=== PATIENT | female | born 1975 | race African-American/Black ===

== ENCOUNTER 2017-01-12 22:49 | Emergency (ER) | payer MEDICAID ==
[2017-01-12] MEDS ORDERED: METOCLOPRAMIDE HCL INJ/PF 10 MG/2 ML SDV IV ONE (23:05)
[2017-01-12] MEDS ORDERED: DIPHENHYDRAMINE HCL 50 MG/ML VIAL IV ONE (23:05)
--- NOTE | 2017-01-12 23:07 | ER Document Report ---
ED Medical Screen (RME) - General Chief Complaint: Headache Stated Complaint: HEADACHE WITH NUMBNESS ON LEFT SIDE Time Seen by Provider: 01/12/17 23:05 Mode of Arrival: Ambulatory Information source: Patient Notes: Patient presents complaining of right-sided migraine headache that started around 6 PM today. Patient states she is light sensitive and has some blurred vision. Patient states that she feels like her left side of her face is numb. Patient reports that with her migraines she has had visual problems and facial numbness in the past although she thought her speech was slurred earlier today which is not typical of her migraines. Patient does state she has a previous history of stroke in the past. Patient does have a history of hypertension and reports taking her blood pressure medication late today at 6 PM. hx: Hypertension, migraine, stroke TRAVEL OUTSIDE OF THE [place] IN LAST 30 DAYS: No Past Medical History Renal/ Medical History: Denies: Hx Peritoneal Dialysis Physical Exam - Vital signs Vitals: Temp Pulse Resp BP Pulse Ox 98.3 F 54 L 20 175/109 H 97 01/12/17 22:55 01/12/17 22:55 01/12/17 22:55 01/12/17 22:55 01/12/17 22:55 - Neurological Neuro grossly intact: Yes Cognition: Normal Rayshawn Coma Scale Eye Opening: Spontaneous Rayshawn Coma Scale Verbal: Oriented Rayshawn Coma Scale Motor: Obeys Commands Braggs Coma Scale Total: 15 Speech: Normal Cranial nerves: Normal Course - Re-evaluation Re-evalutation: 01/12/17 23:[address] Crawford regarding patient presentation and diagnostic evaluation. Does recommend ordering a CT of the head, does not recommend any additional diagnostic tests at this time. - Vital Signs Vital signs: Temp Pulse Resp BP Pulse Ox 98.3 F 54 L 20 175/109 H 97 01/12/17 22:55 01/12/17 22:55 01/12/17 22:55 01/12/17 22:55 01/12/17 22:55
--- NOTE | 2017-01-13 00:07 | RADIOLOGY REPORT (SQ) ---
EXAM DESCRIPTION: CT HEAD WITHOUT COMPLETED DATE/TIME: 01/12/2017 11:45 pm REASON FOR STUDY: POWER COMPARISON: None. TECHNIQUE: Axial images acquired through the brain without intravenous contrast. Images reviewed wi th bone, brain and subdural windows. Images stored on PACS. All CT scanners at this facility use dose modulation, iterative reconstruction, and/or weight based d osing when appropriate to reduce radiation dose to as low as reasonably achievable (ALARA). [facility]: Dose Right [facility]: CareDose [facility]: Dose Right [facility]: Teradose 4D [facility]: Smart Bangcle RADIATION DOSE: Up-to-date CT equipment and radiation dose reduction techniques were employed. CTDIv ol: 64.6 mGy. DLP: 1163 mGy-cm. mGy. LIMITATIONS: None. FINDINGS: VENTRICLES: Normal size and contour. CEREBRUM: No masses. No hemorrhage. No midline shift. Normal yates/white matter differentiation. N o evidence for acute infarction. CEREBELLUM: No masses. No hemorrhage. No alteration of density. No evidence for acute infarction. EXTRAAXIAL SPACES: No fluid collections. No masses. ORBITS AND GLOBE: No intra- or extraconal masses. Normal contour of globe without masses. CALVARIUM: No fracture. PARANASAL SINUSES: No fluid or mucosal thickening. SOFT TISSUES: No mass or hematoma. OTHER: No other significant finding. IMPRESSION: No acute intracranial findings. TECHNICAL DOCUMENTATION: JOB ID: [id number] Quality ID # [id number]: Final reports with documentation of one or more dose reduction techniques (e.g., Au tomated exposure control, adjustment of the mA and/or kV according to patient size, use of iterative reconstruction technique) 2010 [employer]- All Rights Reserved
[2017-01-13] MEDS ORDERED: KETOROLAC TROMETHAMINE INJ/PF 30 MG/1 ML SDV IV ONE (02:46)
--- NOTE | 2017-01-13 02:50 | ER Document Report ---
ED General - General Chief Complaint: Headache Stated Complaint: HEADACHE WITH NUMBNESS ON LEFT SIDE Time Seen by Provider: 01/12/17 23:05 Mode of Arrival: Ambulatory Notes: Patient is a 41-year-old female who presents with complaint of migraine. She has a history of migraines. She says she frequently does get numbness associated with her migraines. This time she has numbness that is intermittent on the left side of her face and sometimes into her left hand. She says that they "tingling type sensation". No muscular weakness. She said one time they told her that she may have had a stroke when she had similar symptoms however since then she has had multiple headaches with similar symptoms. It sounds as if she may have complex migraines. No fevers. No vomiting. No diarrhea. Headache is been gradually worsening over last 2 days. TRAVEL OUTSIDE OF THE [place] IN LAST 30 DAYS: No - Related Data Allergies/Adverse Reactions: diphenhydramine [From Benadryl] Adverse Reaction (Mild, Verified 01/13/17 03:01) Hallucinations Past Medical History - General Information source: Patient - Social History Smoking Status: Never Smoker Frequency of alcohol use: None Drug Abuse: None Family History: Reviewed & Not Pertinent Patient has suicidal ideation: No Patient has homicidal ideation: No Renal/ Medical History: Denies: Hx Peritoneal Dialysis Review of Systems - Review of Systems Notes: My Normal Review Basic REVIEW OF SYSTEMS: CONSTITUTIONAL : Denies fever, chills, or sweats. Denies recent illness. EENT: Denies eye, ear, throat, or mouth pain or symptoms. Denies nasal or sinus congestion. RESPIRATORY: Denies cough, cold, or chest congestion. Denies shortness of breath, difficulty breathing, or wheezing. GASTROINTESTINAL: Denies abdominal pain. Denies nausea, vomiting, or diarrhea. Denies constipation. Last BM: MUSCULOSKELETAL: Denies neck or back pain or joint pain or swelling. SKIN: Denies rash or skin lesions. NEUROLOGICAL: Denies altered mental status or loss of consciousness. Has a headache. Denies weakness or paralysis or loss of use of either side. Denies problems with gait or speech. Intermittent "tingling" sensation on left side PSYCHIATRIC: Denies anxiety or stress or depression. ALL OTHER SYSTEMS REVIEWED AND NEGATIVE. Physical Exam - Vital signs Vitals: Temp Pulse Resp BP Pulse Ox 98.3 F 54 L 20 175/109 H 97 01/12/17 22:55 01/12/17 22:55 01/12/17 22:55 01/12/17 22:55 01/12/17 22:55 - Notes Notes: General Appearance: Well nourished, alert, cooperative, no acute distress, moderate obvious discomfort. Vitals: reviewed, See vital signs table. Head: no swelling or tenderness to the head Eyes: PERRL, EOMI, Conjuctiva clear Mouth: No decreasd moisture Throat: No tonsillar inflammation, No airway obstruction, No lymphadenopathy Neck: Supple, no neck tenderness Lungs: No wheezing, No rales, No rhonci, No accessory muscle use, good air exchange bilaterally. Heart: Normal rate, Regular rythm, No murmur, no rub Abdomen: Normal BS, soft, No rigidity, No abdominal tenderness, No guarding, no rebound, no abdominal masses, no organomegaly Extremities: strength 5/5 in all extremities, good pulses in all extremities, no swelling or tenderness in the extremities, no edema. Skin: warm, dry, appropriate color, no rash Neuro: speech clear, oriented x 3, normal affect, responds appropriately to questions. Nerves II through XII are intact. Distal sensation intact. Patient was lower extremities without difficulty. Patient is able stand up on her own. She has good balance. Normal Romberg. Course - Vital Signs Vital signs: Temp Pulse Resp BP Pulse Ox 98.3 F 54 L 20 175/109 H 97 01/12/17 22:55 01/12/17 22:55 01/12/17 22:55 01/12/17 22:55 01/12/17 22:55 - Transfer of Care Notes: 01/13/17 04:08 Headache is gone. She feels much improved. Patient's headache was very similar to her previous headaches in the location and the associated neurologic symptoms. Per her history it sounds that she most likely has complex migraines and that she typically does get the numbness and tingling sensation with her migraines. All symptoms are resolved after the Benadryl, Reglan, and Toradol. Patient will be discharged home with a prescription of Reglan which I encouraged her to take Benadryl if she has recurrent headaches. I encourage her to follow-up closely with her primary care doctor. Patient agrees with plan will be discharged home. Patient encouraged to return to ER if she has intractable headache or feels unwell. Dictation of this chart was performed using voice recognition software; therefore, there may be some unintended grammatical errors. Discharge - Discharge Clinical Impression: Headache Qualifiers: Headache type: unspecified Headache chronicity pattern: acute headache Intractability: not intractable Qualified Code(s): R51 - Headache Condition: Good Disposition: HOME, SELF-CARE Additional Instructions: Please take 50mg of Benadryl with the Reglan when you have a headache. Do not drive for at least 6 hours after taking these medications as they can make you very sleepy and impair your judgement. Please return to the ER immediately if you have worsening headaches, weakness of your arms or legs, difficulty talking , or if you feel unwell. Prescriptions: Metoclopramide HCl [Reglan 10 mg Tablet] 1 tab PO ASDIR PRN #25 tablet PRN Reason: Forms: Return to Work
[2017-01-13] MEDS ORDERED: METOCLOPRAMIDE HCL INJ/PF 10 MG/2 ML SDV ONE (03:05)
[2017-01-13 04:49] VITALS: BP 152/92
== END 2017-01-13 04:27 | disposition home or self-care (01) ==
LOC: EDBD 22:49 → ER 01-13 03:25
DX: G43.909 Migraine, unspecified, not intractable, without status migrainosus (principal); R20.2 Paresthesia of skin
CPT/HCPCS: 99284; 96374; 96375; 70450; J1885; J2765

== ENCOUNTER 2017-01-14 13:37 | Emergency (ER) | payer MEDICAID ==
[2017-01-14] MEDS ORDERED: LISINOPRIL 5 MG TABLET PO ONE (14:06)
--- NOTE | 2017-01-14 14:11 | ER Document Report ---
ED Medical Screen (RME) - General Chief Complaint: High Blood Pressure Stated Complaint: BLOOD PRESSURE PROBLEM Time Seen by Provider: 01/14/17 14:05 Mode of Arrival: Ambulatory Information source: Patient Notes: This is a 41-year-old female referred to the ER from the [facility] because of an elevated blood pressure (173/102). Patient recently moved here from [place]. She does have a history of metoprolol, TIA and migraines. Patient is currently on metoprolol 75 mg once daily. She states that she has been under stress lately with her move. She denies any significant chest pain, focal weakness. She states that she did feel like she had tingling in the arms bilaterally and felt a little lightheaded. That is what precipitated her going to the [facility] to have a blood pressure check. When she was found to have an elevated blood pressure, they referred her to the ER. Currently, patient denies any chest pain, shortness of breath, abdominal pain, focal weakness. TRAVEL OUTSIDE OF THE [place] IN LAST 30 DAYS: No - HPI Onset: Just prior to arrival Onset/Duration: Gradual Quality of pain: No pain Severity: None Pain Level: Denies Associated Symptoms: denies: Chest pain, Shortness of breath Exacerbated by: Denies Relieved by: Denies Similar symptoms previously: Yes Recently seen / treated by doctor: No - Related Data Allergies/Adverse Reactions: diphenhydramine [From Benadryl] Adverse Reaction (Mild, Verified 01/14/17 13:39) Hallucinations Home Medications: Current Home Medications Metoprolol Tartrate 75 mg PO DAILY 01/14/17 [History] Past Medical History - General Information source: Patient - Social History Cigarette use (# per day): No Chew tobacco use (# tins/day): No Frequency of alcohol use: None Drug Abuse: None Lives with: Family Family history: Reviewed & Not Pertinent - Past Medical History Cardiac Medical History: Reports: Hx Hypertension Pulmonary Medical History: Reports: None EENT Medical History: Reports: None Neurological Medical History: Reports: Other - TIA Endocrine Medical History: Reports: None Renal/ Medical History: Reports: None. Denies: Hx Peritoneal Dialysis Malignancy Medical History: Reports: None GI Medical History: Reports: None Musculoskeltal Medical History: Reports None Skin Medical History: Reports None Psychiatric Medical History: Reports: None Infectious Medical History: Reports: None Surgical Hx: Negative - Immunizations Hx Diphtheria, Pertussis, Tetanus Vaccination: No Review of Systems - Review of Systems Constitutional: denies: Chills, Fever EENT: No symptoms reported Cardiovascular: See HPI Respiratory: No symptoms reported Gastrointestinal: No symptoms reported Genitourinary: No symptoms reported Female Genitourinary: No symptoms reported Musculoskeletal: No symptoms reported Skin: No symptoms reported Hematologic/Lymphatic: No symptoms reported Neurological/Psychological: No symptoms reported Physical Exam - Vital signs Vitals: Temp Pulse Resp BP Pulse Ox 98.8 F 60 16 160/88 H 100 01/14/17 13:39 01/14/17 13:39 01/14/17 13:39 01/14/17 13:39 01/14/17 13:39 Notes: Physical exam: GENERAL:-year-old female, alert and oriented 3, no acute distress HEAD: Atraumatic, normocephalic. EYES: Pupils equal round and reactive to light, extraocular movements intact, sclera anicteric, conjunctiva are normal. ENT: TMs normal, nares patent, oropharynx clear without exudates. Moist mucous membranes. NECK: Normal range of motion, supple LUNGS: Breath sounds clear to auscultation bilaterally and equal. No wheezes rales or rhonchi. HEART: Regular rate and rhythm without murmurs, rubs or gallops. ABDOMEN: Soft, normoactive bowel sounds. No tenderness to palpation. No guarding, no rebound. No masses appreciated. EXTREMITIES: Normal range of motion, no pitting or edema. No clubbing or cyanosis. NEUROLOGICAL: Cranial nerves II through XII grossly intact. No facial asymmetry. motor 5/5, cerebellar (finger to nose) good, sensory is grossly intact, patient's reflexes are brisk and symmetrical. Her speech is normal and her gait is good PSYCH: Normal mood, normal affect. SKIN: Warm, Dry, normal turgor, no rashes or lesions noted. Course - Re-evaluation Re-evalutation: 01/14/17 19:52 Blood: Patient looks very good on exam. There is no evidence a CVA or TIA - Vital Signs Vital signs: Temp Pulse Resp BP Pulse Ox 98.8 F 60 14 142/82 H 100 01/14/17 13:39 01/14/17 14:54 01/14/17 14:54 01/14/17 14:54 01/14/17 14:54 - Laboratory Result Diagrams: 01/14/17 14:36 01/14/17 14:36 Laboratory results interpreted by me: 01/14/17 14:36 Est GFR (Non-Af Amer) 59 L Glucose 61 L Doctor's Discharge - Discharge Clinical Impression: Hypertension Condition: Stable Disposition: HOME, SELF-CARE Instructions: Angiotensin Converting Enzyme Inhibitor Medication ([facility]), High Blood Pressure ([facility]) Additional Instructions: His blood pressure did respond nicely to a small dose of lisinopril. Your EKG was normal. Your electrolytes, kidney tests all look good. Recommendations: Rest, continue with the metoprolol daily. Starting the lisinopril at a small dose once daily. I would like you to follow-up with her primary care doctor: I left the number for Dr. Luo who is affiliated [facility]. He will be able to see all the labs drawn today. The ER for any concerns or to getting worse Prescriptions: Lisinopril 5 mg PO DAILY #30 tablet Referrals: VALENTINA LUO MD [ACTIVE STAFF] - Follow up in 1 week (primary care physician who is affiliated with this [facility].)
[2017-01-14 14:55] LABS: ABSOLUTE EOSINOPHILS # (AUTO) 0.1 10^3/uL (0.0-0.6); ABSOLUTE LYMPHOCYTES (AUTO) 1.7 10^3/uL (0.5-4.7); ABSOLUTE MONOCYTES (AUTO) 0.3 10^3/uL (0.1-1.4); HEMATOCRIT 36.8 % (36.0-47.0); HEMOGLOBIN 12.2 g/dL (12.0-15.5); HGB HCT DIFFERENCE -0.2; LYMPHOCYTES % (AUTO) 40.5 % (13-45); MEAN CORPUSCULAR HEMOGLOBIN 30.2 pg (27.0-33.4); MEAN CORPUSCULAR HGB CONC 33.3 g/dL (32.0-36.0); MEAN CORPUSCULAR VOLUME 91 fl (80-97); MONOCYTES % (AUTO) 8.1 % (3-13); RED BLOOD COUNT 4.06 10^6/uL (3.72-5.28); RED CELL DISTRIBUTION WIDTH 13.2 % (11.5-14.0); SEGMENTED NEUTROPHILS % (AUTO) 48.4 % (42-78); WHITE BLOOD COUNT 4.1 10^3/uL (4.0-10.5)
[2017-01-14 14:56] VITALS: BP 142/82
[2017-01-14 14:59] LABS: ALANINE AMINOTRANSFERASE 18 U/L (9-52); ALBUMIN 3.9 g/dL (3.5-5.0); ALKALINE PHOSPHATASE 71 U/L (38-126); ANION GAP 7 (5-19); ASPARTATE AMINO TRANSFERASE 17 U/L (14-36); BILIRUBIN,DIRECT 0.2 mg/dL (0.0-0.4); BILIRUBIN,TOTAL 0.3 mg/dL (0.2-1.3); BLOOD UREA NITROGEN 13 mg/dL (7-20); CALCIUM 8.9 mg/dL (8.4-10.2); CARBON DIOXIDE 28 mmol/L (22-30); CHLORIDE 106 mmol/L (98-107); CREATINE KINASE 65 U/L (30-135); CREATININE RESULT 1.02 mg/dL (0.52-1.25); GLUCOSE 61 mg/dL (75-110); POTASSIUM 4.2 mmol/L (3.6-5.0); SODIUM 141.1 mmol/L (137-145); TOTAL PROTEIN 7.3 g/dL (6.3-8.2)
[2017-01-14 15:13] LABS: CREATINE KINASE MB < 0.22 ng/mL (<4.55); TROPONIN I < 0.012 ng/mL
--- NOTE | 2017-01-14 17:02 | EKG REPORT ---
SEVERITY:- BORDERLINE ECG - SINUS RHYTHM PROBABLE LEFT ATRIAL ABNORMALITY : Confirmed by: Sabina Hahn MD 14-Jan-2017 17:01:49
== END 2017-01-14 15:40 | disposition home or self-care (01) ==
LOC: ER 13:37
DX: I10 Essential (primary) hypertension (principal); Z86.73 Personal history of transient ischemic attack (TIA), and cerebral infarction without residual deficits
CPT/HCPCS: 36415; 80053; 82550; 82553; 84484; 85025; 93005; 93010; 99283

== ENCOUNTER → 2017-03-02 | Outpatient (CLI) | payer MEDICAID ==
[2017-03-02 19:58] LABS: CHLAM PCR NOT DETECTED (NOT DETECT)
[2017-03-04 07:16] LABS: HSV-I IGG AB 19.2 index (0.00-0.90)
[2017-03-04 08:23] LABS: HSV-II IGG AB 5.59 index (0.00-0.90)
[2017-03-06 10:13] LABS: HSV I AND II IGM AB 3.48 Ratio (0.00-0.90)
== END ==
LOC: OD 17:46
PROVIDERS: ATTEND Nurse Practitioner Acute Care
DX: Z11.3 Encounter for screening for infections with a predominantly sexual mode of transmission (principal)
CPT/HCPCS: 36415; 86695; 86696; 87491; 87591

== ENCOUNTER 2017-03-04 11:44 | Observation (INO) | payer MEDICAID ==
--- NOTE | 2017-03-04 12:15 | ER Document Report ---
ED Medical Screen (RME) - General Chief Complaint: Chest Pain Stated Complaint: BLOOD PRESSURE PROBLEM, CHEST PAIN Notes: 41-year-old female patient complains of chest pain that started about 8 AM this morning, lightheaded, blood pressure elevated. She normally takes 75 mg of metoprolol daily, she only had 50 mg tablets in picked up the additional 25 mg tablets she was out of later this morning. She did not take the additional 25 mg. She did not think of breaking the 50 mg and have to give her a 75 mg dose this morning. She states the chest pains she has had in the past were related to stress. She denies additional stress at this time, however she did have serologic testing 2 days ago for herpes simplex virus 1 and 2 antibodies and both were quite positive. I have greeted and performed a rapid initial assessment of this patient. A comprehensive ED assessment and evaluation of the patient, analysis of test results and completion of the medical decision making process will be conducted by additional ED providers. TRAVEL OUTSIDE OF THE [place] IN LAST 30 DAYS: No - Related Data Allergies/Adverse Reactions: diphenhydramine [From Benadryl] Adverse Reaction (Mild, Verified 03/04/17 11:48) Hallucinations Past Medical History - Social History Family history: Reviewed & Not Pertinent - Past Medical History Cardiac Medical History: Reports: Hx Hypertension Renal/ Medical History: Denies: Hx Peritoneal Dialysis - Immunizations Hx Diphtheria, Pertussis, Tetanus Vaccination: No Physical Exam - Vital signs Vitals: Temp Pulse Resp BP Pulse Ox 98.6 F 64 20 158/96 H 99 03/04/17 11:59 03/04/17 11:59 03/04/17 11:59 03/04/17 11:59 03/04/17 11:59 Course - Vital Signs Vital signs: Temp Pulse Resp BP Pulse Ox 98.6 F 64 20 158/96 H 99 03/04/17 11:59 03/04/17 11:59 03/04/17 11:59 03/04/17 11:59 03/04/17 11:59
[2017-03-04 12:39] LABS: ABSOLUTE EOSINOPHILS # (AUTO) 0.1 10^3/uL (0.0-0.6); ABSOLUTE LYMPHOCYTES (AUTO) 1.7 10^3/uL (0.5-4.7); ABSOLUTE MONOCYTES (AUTO) 0.3 10^3/uL (0.1-1.4); ABSOLUTE NEUT (AUTO) 1.9 10^3/uL (1.7-8.2); BASOPHILS % (AUTO) 0.6 % (0-2); EOSINOPHILS % (AUTO) 1.6 % (0-6); HEMATOCRIT 37.1 % (36.0-47.0); HEMOGLOBIN 12.6 g/dL (12.0-15.5); HGB HCT DIFFERENCE 0.7; LYMPHOCYTES % (AUTO) 43.7 % (13-45); MEAN CORPUSCULAR HEMOGLOBIN 30.5 pg (27.0-33.4); MEAN CORPUSCULAR HGB CONC 34.1 g/dL (32.0-36.0); MEAN CORPUSCULAR VOLUME 89 fl (80-97); MONOCYTES % (AUTO) 7.2 % (3-13); RED BLOOD COUNT 4.15 10^6/uL (3.72-5.28); RED CELL DISTRIBUTION WIDTH 13.5 % (11.5-14.0); SEGMENTED NEUTROPHILS % (AUTO) 46.9 % (42-78)
--- NOTE | 2017-03-04 12:50 | ER Document Report ---
ED General - General Chief Complaint: Chest Pain Stated Complaint: BLOOD PRESSURE PROBLEM, CHEST PAIN Time Seen by Provider: 03/04/17 12:15 Mode of Arrival: Ambulatory Information source: Patient TRAVEL OUTSIDE OF THE [place] IN LAST 30 DAYS: No - HPI Onset: This morning Onset/Duration: Gradual Quality of pain: Sharp - L. CHEST Associated symptoms: Chest pain, Nausea. denies: Shortness of breath, Sweating Exacerbated by: Other - STRESS Relieved by: Denies - Related Data Allergies/Adverse Reactions: diphenhydramine [From Benadryl] Adverse Reaction (Mild, Verified 03/04/17 11:48) Hallucinations Past Medical History - General Information source: Patient - Social History Smoking Status: Never Smoker Cigarette use (# per day): No Chew tobacco use (# tins/day): No Frequency of alcohol use: Rare Drug Abuse: None Lives with: Family Family History: Reviewed & Not Pertinent Patient has suicidal ideation: No Patient has homicidal ideation: No - Past Medical History Cardiac Medical History: Reports: Hx Hypertension Pulmonary Medical History: Reports: Hx Asthma EENT Medical History: Reports: None Neurological Medical History: Reports: None Endocrine Medical History: Reports: None Renal/ Medical History: Reports: None. Denies: Hx Peritoneal Dialysis Malignancy Medical History: Reports: None GI Medical History: Reports: None Musculoskeltal Medical History: Reports None Psychiatric Medical History: Reports: None Past Surgical History: Reports: Hx Breast Surgery - Bx - Immunizations Hx Diphtheria, Pertussis, Tetanus Vaccination: No Review of Systems - Review of Systems Constitutional: Weakness EENT: No symptoms reported Cardiovascular: See HPI Respiratory: No symptoms reported Genitourinary: No symptoms reported Musculoskeletal: No symptoms reported Skin: No symptoms reported Neurological/Psychological: See HPI Physical Exam - Vital signs Vitals: Temp Pulse Resp BP Pulse Ox 98.6 F 64 20 158/96 H 99 03/04/17 11:59 03/04/17 11:59 03/04/17 11:59 03/04/17 11:59 03/04/17 11:59 Interpretation: Hypertensive. No: Tachycardic, Tachypneic - General General appearance: Appears well, Alert In distress: None - HEENT Head: Normocephalic Eyes: Normal Conjunctiva: Normal Ears: Normal Nasal: Normal Mouth/Lips: Normal Mucous membranes: Normal - Respiratory Respiratory status: No respiratory distress Breath sounds: Normal - Cardiovascular Rhythm: Regular Heart sounds: Normal auscultation Murmur: No - Abdominal Inspection: Normal Distension: No distension Bowel sounds: Normal - Extremities General upper extremity: Normal inspection General lower extremity: Normal inspection. No: Edema - Neurological Neuro grossly intact: Yes Cognition: Normal Orientation: AAOx4 - Psychological Associated symptoms: Normal affect, Normal mood - Skin Skin Temperature: Warm Skin Moisture: Dry Skin Color: Normal Skin Turgor: Elastic Course - Vital Signs Vital signs: Temp Pulse Resp BP Pulse Ox 98.6 F 64 20 149/100 H 100 03/04/17 11:59 03/04/17 11:59 03/04/17 20:00 03/04/17 20:00 03/04/17 20:00 - Laboratory Result Diagrams: 03/04/17 12:20 03/04/17 12:20 Discharge - Discharge Clinical Impression: Hypertensive urgency Disposition: ADMITTED OBSERVATION Admitting Provider: Hospitalist Unit Admitted: [facility]
[2017-03-04 12:59] LABS: ALANINE AMINOTRANSFERASE 21 U/L (9-52); ALBUMIN 4.3 g/dL (3.5-5.0); ALKALINE PHOSPHATASE 86 U/L (38-126); ANION GAP 8 (5-19); ASPARTATE AMINO TRANSFERASE 20 U/L (14-36); BILIRUBIN,DIRECT 0.3 mg/dL (0.0-0.4); BILIRUBIN,TOTAL 0.5 mg/dL (0.2-1.3); BLOOD UREA NITROGEN 11 mg/dL (7-20); CALCIUM 9.8 mg/dL (8.4-10.2); CARBON DIOXIDE 30 mmol/L (22-30); CHLORIDE 105 mmol/L (98-107); CREATINE KINASE 102 U/L (30-135); CREATININE RESULT 0.96 mg/dL (0.52-1.25); GLUCOSE 82 mg/dL (75-110); SODIUM 143.4 mmol/L (137-145); TOTAL PROTEIN 8.1 g/dL (6.3-8.2)
[2017-03-04] MEDS ORDERED: LISINOPRIL 5 MG TABLET PO ONE ×2 (14:16→18:35)
[2017-03-04] MEDS ORDERED: METOPROLOL TARTRATE 25 MG TABLET PO ONE ×2 (14:17→18:35)
[2017-03-04] MEDS ORDERED: HYDROCODONE/ACETAMINOPHEN 5-325 MG TABLET PO ONE (17:47)
[2017-03-04] MEDS ORDERED: LABETALOL HCL INJ 20 MG/4 ML DISP.SYRIN IV ONE (20:19)
[2017-03-04 21:47] LABS: ADD ON TESTING BLD IN LAB ACKNOWLEDGE
[2017-03-05 00:37] LABS: URINE BARBITURATES SCREEN NEGATIVE; URINE METHADONE SCREEN NEGATIVE; URINE OPIATES LOW UNCONFIRMED POSITIVE; URINE PHENCYCLIDINE SCREEN NEGATIVE
[2017-03-05] MEDS ORDERED: MAG HYDROX/AL HYDROX/SIMETH SUSP 30 ML UDCUP PO PRN (01:46)
[2017-03-05] MEDS ORDERED: PROMETHAZINE HCL 25 MG TABLET PO PRN (01:52)
[2017-03-05] MEDS ORDERED: ACETAMINOPHEN 325 MG TABLET PO PRN (01:53)
[2017-03-05] MEDS ORDERED: ENALAPRILAT DIHYDRATE INJ/PF 1.25 MG/1 ML SDV IV PRN (01:59)
--- NOTE | 2017-03-05 02:03 | PDOC H&P ---
History of Present Illness Admission Date/PCP: 03/04/17 22:00 PCP None Patient complains of: chest pain History of Present Illness: CLARE THAKUR is a 41 year old -Finnish female, with underlying hypertension, admittedly not completely compliant with her medications, who presents to the emergency room for evaluation of above complaints. Patient has been discussed with emergency room physician who evaluated the patient. She noted the onset of sharp left chest pain with associated nausea the morning of the . No associated sweating shortness or shortness of breath. Some increase with stress. Nothing really relieved the pain. Currently resting quietly, chest pain-free. Moderately elevated blood pressures noted in the emergency room. This has responded nicely to treatment so far. Patient has had prior similar chest discomfort, primarily in 2011 when she suffered a TIA. No cardiac workup at that time. She has a distant history of a negative exercise treadmill study. Basically a negative cardiac history other than hypertension. No history of pulmonary embolus or DVT. No recent long trip with prolonged inactivity, or unusual lower extremity swelling or tenderness. Negative family history of coronary artery disease. Dictation via voice recognition software. Laboratory results are listed in [facility] and are reviewed. X-ray summary results are listed below, with full report(s) reviewed. . EKG reviewed. Social history/personal habits: Single. 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 No use of alcohol tobacco or illicit drugs. Allergies/adverse reactions are listed in [facility] and are reviewed. Home medications confirmed by discussion with patient. REVIEW OF SYSTEMS: Constitutional: No fever or chills. Eyes: Wears glasses. ENT: No swallowing problems or complaints. Denies hearing loss. Pulmonary: No current complaints. Cardiovascular: See history and present illness. Gastrointestinal: See history and present illness. Skin: Occasional problems with eczema. Hematologic: Easy bruising. Neurologic: No current complaints, including numbness or tingling. Musculoskeletal: No current or chronic joint complaints, such as arthritis. Psychiatric: Mild depression. Denies suicidal or homicidal ideation. Endocrine: No current complaints, including polyuria. Genitourinary: No current complaints, including dysuria. PHYSICAL EXAMINATION: 5 feet 4 inches tall. 71.9 kg. BMI 27.2 kg/m.Temperature 98. Pulse 83 and regular. Blood pressure 145/97. Respirations are 20 and unlabored. 100% saturation on room air. Female floor [employer] Nancy is present. Slightly overweight otherwise well-nourished well-developed -Finnish female appearing approximately her stated age. Pleasant awake alert and cooperative. No obvious distress other than perhaps mildly anxious. Skin is warm and dry. No grossly obvious evidence of rash in areas of skin examined. No subcutaneous nodules palpated. ENT: Hearing grossly normal to normal conversation. Tongue midline on protrusion pink and slightly tacky. Eyes: No scleral icterus. Pupils equal and reactive to light at 4 mm. Penton conjunctivae. Neck is supple and nontender to gentle active range of motion and palpation. Midline trachea. No palpable thyroid nodule mass enlargement or tenderness. Lymphatic: No palpable cervical or clavicular nodes. Neck and lymphatic exams limited by patient body habitus. Psychiatric: Reasonable insight into acute and chronic medical issues. Oriented to time location and why here. Lungs: Auscultation reveals clear and equal breath sounds bilaterally. No use of accessory respiratory muscles. Cardiovascular: Heart regular rate and rhythm, without gallop murmur or rub. No carotid or abdominal aortic bruits. No ankle or pedal edema. Faintly palpable dorsalis pedis pulses. Abdomen:soft slightly distended nontender with positive bowel sounds. Unable to adequately evaluate abdomen for masses or organomegaly due to distention. No reproduction of chest discomfort with epigastric compression, but sternal compression does seem to reproduce her previously noted chest discomfort. Extremities: Feet are warm and dry. No calf tenderness to compression. No grossly obvious visual evidence of calf swelling. Gentle manipulation of lower extremities fails to reveal any obvious evidence of injury or instability to knees hips or ankles. Neurologic: Moves upper extremities grossly normally. Patellar reflexes absent. Absent Babinski. Light touch is intact at feet. Dorsiflexion and plantarflexion of feet 5 / 5 and symmetric. Past Medical History Cardiac Medical History: Reports: Hypertension Denies: Atrial Fibrillation, Congestive Heart Failure, Coronary Artery Disease, DVT, Myocardial Infarction, Hyperlipidema, Pulmonary Embolism Pulmonary Medical History: Reports: Asthma Denies: Chronic Obstructive Pulmonary Disease (COPD), Sleep Apnea EENT Medical History: Reports: Eyes - Glasses Denies: Ears, Throat Neurological Medical History: Reports: Other - History of TIA Denies: Hemorrhagic CVA, Ischemic CVA, Seizures Endocrine Medical History: Denies: Diabetes Mellitus Type 1, Diabetes Mellitus Type 2, Hyperthyroidism, Hypothyroidism Renal/ Medical History: Reports: None GI Medical History: Denies: Cirrhosis, Gastroesophageal Reflux Disease, Hepatitis, Peptic Ulcer Disease Musculoskeltal Medical History: Denies: Arthritis Skin Medical History: Reports: Eczema Psychiatric Medical History: Reports: Depression - Mild; denies suicidal or homicidal ideation Denies: Alcohol Dependency, General Anxiety Disorder, Substance Abuse, Tobacco Dependency Hematology: Reports: Other - Easy bruising Infectious Medical History: Denies: Hepatitis B, Hepatitis C Past Surgical History Past Surgical History: Reports: Section Social History Information Source: Patient, Emergency Med Personnel, [facility] Records Smoking Status: Never Smoker Frequency of Alcohol Use: None Drugs: None - Advance Directive Resuscitation Status: Full Code Surrogate healthcare decision maker:: Uncertain at this point in time. Family History Family History: Reviewed & Not Pertinent Parental Family History Reviewed: Yes - Parents both alive, hypertension Children Family History Reviewed: Yes - Son with biliary atresia. Sibling(s) Family History Reviewed.: Yes - Sister hypertensive Medication/Allergy Allergies/Adverse Reactions: diphenhydramine [From Benadryl] Adverse Reaction (Mild, Verified 03/04/17 11:48) Hallucinations Physical Exam Vital Signs: Temp Pulse Resp BP Pulse Ox 98 F 75 20 145/97 H 100 03/05/17 00:53 03/05/17 00:53 03/05/17 00:53 03/05/17 00:53 03/05/17 00:53 Intake & Output 03/04/17 03/05/17 03/06/17 00:59 00:59 00:59 Weight 71.9 kg Results Laboratory Results: 03/04/17 23:35 Troponin I < 0.012 Assessment & Plan - Diagnosis (1) DVT prophylaxis Is this a current diagnosis for this admission?: Yes (2) Hypertensive urgency Is this a current diagnosis for this admission?: YesPlan: Gradual blood pressure reduction. Parameters listed in chart. (3) Noncompliance Is this a current diagnosis for this admission?: Yes (4) Precordial chest pain Is this a current diagnosis for this admission?: YesPlan: Unlikely acute coronary syndrome, but Patient will be placed in observation bed under chest pain protocol. Patient understands to notify staff should chest pain recur. Serial troponin . Repeat EKG. lipid panel. I have strongly encouraged patient to be careful getting out of bed without notifying staff, to avoid a fall with injury. Knee high SCDs for DVT prophylaxis, along with subcu Lovenox. Impression and plans were discussed with patient, who concurs. Time spent in evaluation and management of patient: 68 minutes. (5) Asthma Qualifiers: Asthma severity: unspecified severity Asthma complication type: uncomplicated Qualified Code(s): J45.909 - Unspecified asthma, uncomplicated Is this a current diagnosis for this admission?: YesPlan: As needed pamellao nebs.
[2017-03-05 06:20] LABS: CHOLESTEROL 169.85 mg/dL (0-200); Direct HDL 50 mg/dL (>40); TRIGLYCERIDES 203 mg/dL (<150)
[2017-03-05 06:30] LABS: DIRECT LDL 84 mg/dL (<100)
[2017-03-05 06:34] LABS: VLDL CHOLESTEROL 40.6 mg/dL (10-31)
--- NOTE | 2017-03-05 07:02 | RADIOLOGY REPORT (SQ) ---
EXAM DESCRIPTION: CHEST SINGLE VIEW COMPLETED DATE/TIME: 03/05/2017 6:21 am REASON FOR STUDY: chest pain COMPARISON: None. EXAM PARAMETERS: NUMBER OF VIEWS: One view. TECHNIQUE: Single frontal radiographic view of the chest acquired. RADIATION DOSE: NA LIMITATIONS: None. FINDINGS: LUNGS AND PLEURA: No opacities, masses or pneumothorax. No pleural effusion. MEDIASTINUM AND HILAR STRUCTURES: No masses. Contour normal. HEART AND VASCULAR STRUCTURES: Heart normal in size. Normal vasculature. BONES: No acute findings. HARDWARE: None in the chest. OTHER: No other significant finding. IMPRESSION: NO ACUTE RADIOGRAPHIC FINDING IN THE CHEST. TECHNICAL DOCUMENTATION: JOB ID: [id number]
[2017-03-05] MEDS ORDERED: ASPIRIN 81 MG TABLET, ENT COATED PO SCH (10:00)
[2017-03-05] MEDS ORDERED: ENOXAPARIN SODIUM INJ 40 MG/0.4 ML DISP.SYRIN SUBCUT SCH (10:00)
[2017-03-05] MEDS ORDERED: DOCUSATE SODIUM 100 MG CAPSULE PO SCH (10:00)
--- NOTE | 2017-03-05 13:07 | EKG REPORT ---
SEVERITY:- NORMAL ECG - SINUS RHYTHM : Confirmed by: Kellie Hung 05-Mar-2017 13:06:44
--- NOTE | 2017-03-05 13:07 | EKG REPORT ---
SEVERITY:- NORMAL ECG - SINUS RHYTHM : Confirmed by: Kellie Hung 05-Mar-2017 13:06:49
[2017-03-05 15:40] VITALS: BP 127/82
--- NOTE | 2017-03-05 16:33 | PDOC DISCHARGE SUMMARY ---
General - Admit/Disc Date/PCP Admission Date/Primary Care Provider: 03/05/17 01:46 Discharge Date: 03/05/17 - Discharge Diagnosis (1) Hypertensive urgency Is this a current diagnosis for this admission?: Yes (2) Precordial chest pain Is this a current diagnosis for this admission?: Yes (3) Noncompliance Is this a current diagnosis for this admission?: Yes - Additional Information Resuscitation Status: Full Code Discharge Diet: Cardiac Discharge Activity: Activity As Tolerated Home Medications: Leuprolide Acetate [Lupron Depot] 11.25 mg IM ASDIR 03/05/17 Lisinopril [Prinivil] 5 mg PO DAILY #30 tablet 03/05/17 Metoclopramide HCl [Reglan 10 mg Tablet] 10 mg PO DAILYP PRN 03/05/17 Metoprolol Tartrate [Lopressor 50 mg Tablet] 50 mg PO DAILY #30 tablet 03/05/17 History of Present Illness Patient complains of: Chest pain History of Present Illness: CLARE THAKUR is a 41 year old female CLARE THAKUR is a 41 year old -Surinamese female, with underlying hypertension, admittedly not completely compliant with her medications, who presents to the emergency room for evaluation of above complaints. Hospital Course Hospital Course: Patient admitted for hypertensive urgency. Started back on oral antihypertensives and blood pressure came under good control. Chest pain resolved. Cardiac enzymes negative. Patient is counseled on medication compliance and given refills for medications. She already has an appointment scheduled later this month to see Dr. Sepulveda to establish primary care. Physical Exam Vital Signs: Temp Pulse Resp BP Pulse Ox 98.2 F 72 16 145/97 H 97 03/05/17 14:20 03/05/17 14:20 03/05/17 14:20 03/05/17 14:20 03/05/17 14:20 Intake & Output 03/04/17 03/05/17 03/06/17 06:59 06:59 06:59 Intake Total 3 100 Output Total 200 Balance 3 -100 Weight 71 kg GENERAL: No acute distress HEENT: Conjunctiva clear, nonicteric, moist mucous membranes, no JVD, midline trachea RESPIRATORY: Clear to auscultation bilaterally, no wheezes, no rhonchi CARDIAC: Regular rate and rhythm, no murmurs/gallops/rubs ABDOMEN: Soft, nondistended, nontender, positive bowel sounds, no rebound, no guarding EXTREMETIES: No edema, cyanosis, clubbing NEUROLOGIC: Alert, oriented to person/place/time, CN's grossly intact, no focal deficits SKIN: No rash, wounds PSYCH: Normal mood, normal affect Results Laboratory Results: 03/05/17 05:34 Triglycerides 203 H Cholesterol 169.85 LDL Cholesterol Direct 84 VLDL Cholesterol 40.6 H HDL Cholesterol 50 03/05/17 05:34 Troponin I < 0.012 Impressions: Chest X-Ray 03/05/17 00:00 IMPRESSION: NO ACUTE RADIOGRAPHIC FINDING IN THE CHEST. Qualifiers PATEINT BEING DISCHARGED WITH ANY OF THE FOLLOWING DIAGNOSIS?: No Plan Time Spent: Less than 30 Minutes
== END 2017-03-05 15:47 | disposition home or self-care (01) ==
LOC: ER 11:44 → UNDOADMOB 22:00 → EH 22:00 → 3S 03-05 00:43 → EH 03-05 00:43 → 3S 03-05 01:46
PROVIDERS: ADMIT Family Medicine; ATTEND Family Medicine
DX: I16.0 Hypertensive urgency (principal); R07.2 Precordial pain; Z91.19 Patient's noncompliance with other medical treatment and regimen; F32.9 Major depressive disorder, single episode, unspecified; J45.909 Unspecified asthma, uncomplicated; Z79.899 Other long term (current) drug therapy; Z86.73 Personal history of transient ischemic attack (TIA), and cerebral infarction without residual deficits; Z82.49 Family history of ischemic heart disease and other diseases of the circulatory system
CPT/HCPCS: 93005 ×2; 99285; 96374; 36415 ×2; 82550; 83735; 84443; 84703; 85025; 80053; 84484 ×2; 80307; 80061; 71010; 93010 ×2; G0378; J3490 ×5; J1650

== ENCOUNTER 2017-11-29 19:08 | Emergency (ER) | payer MEDICAID ==
--- NOTE | 2017-11-29 19:36 | ER Document Report ---
ED Medical Screen (RME) - General Chief Complaint: High Blood Pressure Stated Complaint: HEADACHE Time Seen by Provider: 11/29/17 19:30 Notes: This 42-year-old female patient comes emerged from complaining her blood pressure was high at home at 186/101, here it is 138/78. She also reports headache, and chest pain for the past hour. She reports that she ran out of her blood pressure medication. She does see a provider at the [facility] across the street from the hospital. She tried to show me how she takes her blood pressure with her personal wrist blood pressure cuff, after several attempts she was unable to get the unit to function properly or give a blood pressure reading. I have greeted and performed a rapid initial assessment of this patient. A comprehensive ED assessment and evaluation of the patient, analysis of test results and completion of the medical decision making process will be conducted by additional ED providers. TRAVEL OUTSIDE OF THE [place] IN LAST 30 DAYS: No - Related Data Allergies/Adverse Reactions: diphenhydramine [From Benadryl] Adverse Reaction (Mild, Verified 03/04/17 11:48) Hallucinations Home Medications: dutoprol, lisinopril, albuterol inhaler Past Medical History - Social History Chew tobacco use (# tins/day): No Frequency of alcohol use: None Drug Abuse: None Family history: Reviewed & Not Pertinent - Past Medical History Cardiac Medical History: Reports: Hx Hypertension Denies: Hx Atrial Fibrillation, Hx Congestive Heart Failure, Hx Coronary Artery Disease, Hx DVT, Hx Heart Attack, Hx Hypercholesterolemia, Hx Pulmonary Embolism Pulmonary Medical History: Reports: Hx Asthma Denies: Hx COPD, Hx Sleep Apnea Neurological Medical History: Denies: Hx Seizures Endocrine Medical History: Denies: Hx Diabetes Mellitus Type 1, Hx Diabetes Mellitus Type 2, Hx Hyperthyroidism, Hx Hypothyroidism Renal/ Medical History: Denies: Hx Peritoneal Dialysis GI Medical History: Denies: Hx Cirrhosis, Hx Gastroesophageal Reflux Disease, Hx Hepatitis Musculoskeltal Medical History: Denies Hx Arthritis Skin Medical History: Reports Hx Eczema Psychiatric Medical History: Reports: Hx Depression - Mild; denies suicidal or homicidal ideation Infectious Medical History: Denies: Hx Hepatitis Past Surgical History: Reports: Hx Breast Surgery - Bx, Hx Section - Immunizations Hx Diphtheria, Pertussis, Tetanus Vaccination: No Physical Exam - Vital signs Vitals: Temp Pulse Resp BP Pulse Ox 98.6 F 92 18 138/78 H 99 11/29/17 19:13 11/29/17 19:13 11/29/17 19:13 11/29/17 19:13 11/29/17 19:13 Course - Vital Signs Vital signs: Temp Pulse Resp BP Pulse Ox 98.6 F 92 18 138/78 H 99 11/29/17 19:13 11/29/17 19:13 11/29/17 19:13 11/29/17 19:13 11/29/17 19:13
[2017-11-29 20:02] LABS: ABSOLUTE EOSINOPHILS # (AUTO) 0.1 10^3/uL (0.0-0.6); ABSOLUTE LYMPHOCYTES (AUTO) 2.4 10^3/uL (0.5-4.7); ABSOLUTE MONOCYTES (AUTO) 0.5 10^3/uL (0.1-1.4); BASOPHILS % (AUTO) 0.7 % (0-2); EOSINOPHILS % (AUTO) 0.8 % (0-6); HEMATOCRIT 37.6 % (36.0-47.0); HEMOGLOBIN 13.1 g/dL (12.0-15.5); MEAN CORPUSCULAR HEMOGLOBIN 31.1 pg (27.0-33.4); MEAN CORPUSCULAR HGB CONC 34.9 g/dL (32.0-36.0); MEAN CORPUSCULAR VOLUME 89 fl (80-97); MONOCYTES % (AUTO) 7.2 % (3-13); PLATELET COUNT 372 10^3/uL (150-450); RED BLOOD COUNT 4.22 10^6/uL (3.72-5.28); RED CELL DISTRIBUTION WIDTH 13.4 % (11.5-14.0); SEGMENTED NEUTROPHILS % (AUTO) 57.3 % (42-78); TOTAL CELLS COUNTED % (AUTO) 100 %
[2017-11-29 20:24] LABS: ALANINE AMINOTRANSFERASE 15 U/L (9-52); ALBUMIN 4.2 g/dL (3.5-5.0); ALKALINE PHOSPHATASE 76 U/L (38-126); ANION GAP 10 (5-19); ASPARTATE AMINO TRANSFERASE 21 U/L (14-36); BILIRUBIN,DIRECT 0.2 mg/dL (0.0-0.4); BILIRUBIN,TOTAL 0.3 mg/dL (0.2-1.3); BLOOD UREA NITROGEN 15 mg/dL (7-20); CALCIUM 9.6 mg/dL (8.4-10.2); CARBON DIOXIDE 30 mmol/L (22-30); CHLORIDE 106 mmol/L (98-107); CREATINE KINASE 101 U/L (30-135); GLUCOSE 83 mg/dL (75-110); POTASSIUM 3.3 mmol/L (3.6-5.0); SODIUM 145.6 mmol/L (137-145); TOTAL PROTEIN 7.7 g/dL (6.3-8.2)
[2017-11-29] MEDS ORDERED: METOPROLOL TARTRATE 50 MG TABLET PO ONE (20:26)
[2017-11-29] MEDS ORDERED: LISINOPRIL 10 MG TABLET PO ONE (20:26)
[2017-11-29] MEDS ORDERED: IBUPROFEN 600 MG TABLET PO ONE (20:29)
[2017-11-29] MEDS ORDERED: BUTALB/ACETAMINOPHEN/CAFFEINE 1 TAB EACH PO ONE (20:29)
--- NOTE | 2017-11-29 20:35 | ER Document Report ---
ED General - General Chief Complaint: High Blood Pressure Stated Complaint: HEADACHE Time Seen by Provider: 11/29/17 19:30 Notes: Patient is a 42 year old female with past medical history of essential hypertension, no cardiac history who presents with multiple complaints. Patient states that earlier today she began to feel lightheaded, somewhat dizzy and developed a dull, constant throbbing headache that became progressively worse after onset. Patient also notes that she has had some intermittent chest discomfort in the left side of her chest without radiation of the pain. She is not trying to improve her symptoms. Nothing worsens her symptoms although she believes they are triggered by the anniversary of the loss of her son coming up as well as the proximity of Mother's Day. Patient has had multiple episodes of similar symptoms in the past that have resulted in emergency department visits that have not shown any clinically significant pathology other than essential hypertension. Patient states this does feel very similar to those episodes. She notes that she has not taken her blood pressure medications today and she is currently out of those medications and has refills to be picked up tomorrow. She denies any ongoing chest pain at the time of my assessment. She does note an ongoing mild headache and is requesting treatment for the headache. She has not seen her primary care doctor regarding today's concerns. TRAVEL OUTSIDE OF THE [place] IN LAST 30 DAYS: No - Related Data Allergies/Adverse Reactions: diphenhydramine [From Benadryl] Adverse Reaction (Mild, Verified 03/04/17 11:48) Hallucinations Home Medications: dutoprol, lisinopril, albuterol inhaler Past Medical History - General Information source: Patient - Social History Smoking Status: Never Smoker Chew tobacco use (# tins/day): No Frequency of alcohol use: None Drug Abuse: None Lives with: Alone Family History: Reviewed & Not Pertinent Patient has suicidal ideation: No Patient has homicidal ideation: No - Past Medical History Cardiac Medical History: Reports: Hx Hypertension Denies: Hx Atrial Fibrillation, Hx Congestive Heart Failure, Hx Coronary Artery Disease, Hx DVT, Hx Heart Attack, Hx Hypercholesterolemia, Hx Pulmonary Embolism Pulmonary Medical History: Reports: Hx Asthma Denies: Hx COPD, Hx Sleep Apnea Neurological Medical History: Denies: Hx Seizures Endocrine Medical History: Denies: Hx Diabetes Mellitus Type 1, Hx Diabetes Mellitus Type 2, Hx Hyperthyroidism, Hx Hypothyroidism Renal/ Medical History: Denies: Hx Peritoneal Dialysis GI Medical History: Denies: Hx Cirrhosis, Hx Gastroesophageal Reflux Disease, Hx Hepatitis Musculoskeltal Medical History: Denies Hx Arthritis Skin Medical History: Reports Hx Eczema Psychiatric Medical History: Reports: Hx Depression - Mild; denies suicidal or homicidal ideation Infectious Medical History: Denies: Hx Hepatitis Past Surgical History: Reports: Hx Breast Surgery - Bx, Hx Section - Immunizations Hx Diphtheria, Pertussis, Tetanus Vaccination: No Review of Systems - Review of Systems Notes: Constitutional: Negative for fever. HENT: Negative for sore throat. Eyes: Negative for visual changes. Cardiovascular: Positive for chest pain. Respiratory: Negative for shortness of breath. Gastrointestinal: Negative for abdominal pain, vomiting or diarrhea. Genitourinary: Negative for dysuria. Musculoskeletal: Negative for back pain. Skin: Negative for rash. Neurological: Positive for headache 10 point ROS negative except as marked above and in HPI. Physical Exam - Vital signs Vitals: Temp Pulse Resp BP Pulse Ox 98.6 F 92 18 138/78 H 99 11/29/17 19:13 11/29/17 19:13 11/29/17 19:13 11/29/17 19:13 11/29/17 19:13 Notes: PHYSICAL EXAMINATION: GENERAL: Well-appearing, well-nourished and in no acute distress. HEAD: Atraumatic, normocephalic. EYES: Pupils equal round and reactive to light, extraocular movements intact, sclera anicteric, conjunctiva are normal. ENT: nares patent, oropharynx clear without exudates. Moist mucous membranes. NECK: Normal range of motion, supple without lymphadenopathy LUNGS: Breath sounds clear to auscultation bilaterally and equal. No wheezes rales or rhonchi. HEART: Regular rate and rhythm without murmurs ABDOMEN: Soft, nontender, normoactive bowel sounds. No guarding, no rebound. No masses appreciated. EXTREMITIES: Normal range of motion, no pitting or edema. No cyanosis. NEUROLOGICAL: Face symmetric. Tongue protrudes midline. Extraocular motions intact. Pupils are 2 mm and equally reactive. Normal speech, normal gait. 5 out of 5 strength in both the distal and proximal upper and lower extremities bilaterally. Sensation is grossly intact throughout. Finger to nose testing normal. Pronator drift normal. PSYCH: Normal mood, normal affect. SKIN: Warm, Dry, normal turgor, no rashes or lesions noted. Course - Re-evaluation Re-evalutation: 11/29/17 20:27 Patient presents with concerns of essential hypertension and being out of her medications. The patient reports that she felt somewhat jittery, lightheaded and had a mild, constant, throbbing headache with intermittent associated chest pain for most of the day today. On assessment she notes that her chest pain has since resolved although she does continue to note a mild headache. She states that this feels very similar prior episodes in which she has had her blood pressure become uncontrolled. She did not have any of her medications today likely explaining why she had elevated blood pressure and the associated symptoms. She has no focal neurologic deficits on examination. EKG without ischemic changes. Troponin is normal. The remainder of her labs unremarkable. She has had improvement of her blood pressure after receiving metoprolol and lisinopril which are her home blood pressure medications. She has refills of these medications available to her in the pharmacy and will be picking them up tomorrow. I have very low clinical suspicion for ACS, pneumothorax, acute pulmonary embolus, or any other life-threatening pathology as the etiology of today's presentation today. At this time will discharge with return precautions and follow-up recommendations. Verbal discharge instructions given a the bedside and opportunity for questions given. Medication warnings reviewed. Patient is in agreement with this plan and has verbalized understanding of return precautions and the need for primary care follow-up in the next 24-72 hours. - Vital Signs Vital signs: Temp Pulse Resp BP Pulse Ox 98.6 F 79 18 126/75 H 99 11/29/17 19:13 11/29/17 19:37 11/29/17 19:13 11/29/17 19:40 11/29/17 19:13 - Laboratory Result Diagrams: 11/29/17 19:50 11/29/17 19:50 Laboratory results interpreted by me: 11/29/17 19:50 Sodium 145.6 H Potassium 3.3 L - EKG Interpretation by Me Additional EKG results interpreted by me: 11/29/17 20:29 Sinus rhythm. Rate 82. No ST elevations or depressions. QTC is 425. Discharge - Discharge Clinical Impression: Hypertensive urgency, Chest discomfort Headache Qualifiers: Headache type: unspecified Headache chronicity pattern: acute headache Intractability: not intractable Qualified Code(s): R51 - Headache Condition: Good Disposition: HOME, SELF-CARE Additional Instructions: Your labs and examination are reassuring today and did not suggest any life- threatening cause of your symptoms today. Please return if you develop recurrence or chest pain, severe headache, pass out, develop weakness, numbness , confusion, or have any other symptoms that are worrisome to you. Please take your blood pressure medications as prescribed. Follow-up with your primary care doctor within the next 1-2 days. Referrals: ZORAN BLACK PA-C [Primary Care Provider] - Follow up as needed
[2017-11-29 20:53] VITALS: BP 112/72
--- NOTE | 2017-11-29 22:30 | EKG REPORT ---
SEVERITY:- ABNORMAL ECG - SINUS RHYTHM LEFT ATRIAL ABNORMALITY : Confirmed by: Kellie Hung 29-Nov-2017 22:29:28
== END 2017-11-29 20:53 | disposition home or self-care (01) ==
LOC: ER 19:08
DX: R07.9 Chest pain, unspecified (principal); R51 Headache; I10 Essential (primary) hypertension
CPT/HCPCS: 93005; 99284; 36415; 82550; 85025; 80053; 84484; 93010; J3490 ×4

== ENCOUNTER 2018-08-06 19:37 | Emergency (ER) | payer SELFPAY ==
[2018-08-06 21:13] LABS: A TYPE INFLUENZA AG NEGATIVE (NEGATIVE); B INFLUENZA AG NEGATIVE (NEGATIVE)
--- NOTE | 2018-08-06 21:13 | RADIOLOGY REPORT (SQ) ---
EXAM DESCRIPTION: XR CHEST 2 VIEWS COMPLETED DATE/TME: 08/06/2018 00:00 CLINICAL HISTORY: 43 years, Female, asthma COMPARISON: 03/05/2017 chest NUMBER OF VIEWS: 2 TECHNIQUE: Frontal and lateral views of the chest LIMITATIONS: None. FINDINGS: Heart size is normal. Lungs are clear. No pneumothorax IMPRESSION: Negative chest copyright 2010 [employer]- All Rights Reserved
[2018-08-06] MEDS ORDERED: ONDANSETRON HCL INJ/PF 4 MG/2 ML SDV IV ONE (21:22)
[2018-08-06] MEDS ORDERED: MORPHINE SULFATE 10 MG/ML INJ IV ONE (21:22)
--- NOTE | 2018-08-06 21:26 | ER Document Report ---
ED General - General Chief Complaint: Breathing Difficulty Stated Complaint: COLD SYMPTOMS Time Seen by Provider: 08/06/18 21:08 Mode of Arrival: Ambulatory Information source: Patient, [facility] Records Notes: 43-year-old female with hypertension, asthma presents with complaint of cough, shortness of breath, left ear pain, nasal congestion and sore throat for approximately 1 week. Patient also complaining of 3 days of chest pain that has worsened today. She describes the pain as constant, pressure-like. She denies any radiation of pain, associated nausea, diaphoresis, lightheadedness. Patient does not have any asthma medications at home. She states that she believes the change in weather is what flared up the cough. She denies fever, chills, nausea, vomiting, abdominal pain. Patient does not smoke. She denies any recent travel, history of cancer, previous history of DVT, PE. She is currently on Depo-Provera. TRAVEL OUTSIDE OF THE [place] IN LAST 30 DAYS: No - HPI Onset: Last week Onset/Duration: Persistent Quality of pain: Pressure Severity: Moderate Pain Level: 4 Associated symptoms: Body/muscle aches, Chest pain, Nonproductive cough, Earache, Hurts to breath, Sinus pain/drainage, Shortness of breath, Sore throat. denies: Fever, Nausea, Vomiting, Rhinnorhea Exacerbated by: Coughing, Deep breathing Relieved by: Denies Similar symptoms previously: Yes Recently seen / treated by doctor: No - Related Data Allergies/Adverse Reactions: diphenhydramine [From Benadryl] Adverse Reaction (Mild, Verified 03/04/17 11:48) Hallucinations Past Medical History - General Information source: Patient - Social History Smoking Status: Never Smoker Chew tobacco use (# tins/day): No Frequency of alcohol use: None Drug Abuse: None Lives with: Family Family History: Reviewed & Not Pertinent Patient has suicidal ideation: No Patient has homicidal ideation: No - Past Medical History Cardiac Medical History: Reports: Hx Hypertension Denies: Hx Atrial Fibrillation, Hx Congestive Heart Failure, Hx Coronary Artery Disease, Hx DVT, Hx Heart Attack, Hx Hypercholesterolemia, Hx Pulmonary Embolism Pulmonary Medical History: Reports: Hx Asthma Denies: Hx COPD, Hx Sleep Apnea Neurological Medical History: Denies: Hx Seizures Endocrine Medical History: Denies: Hx Diabetes Mellitus Type 1, Hx Diabetes Mellitus Type 2, Hx Hyperthyroidism, Hx Hypothyroidism Renal/ Medical History: Denies: Hx Peritoneal Dialysis GI Medical History: Denies: Hx Cirrhosis, Hx Gastroesophageal Reflux Disease, Hx Hepatitis Musculoskeletal Medical History: Denies Hx Arthritis Skin Medical History: Reports Hx Eczema Psychiatric Medical History: Reports: Hx Depression - Mild; denies suicidal or homicidal ideation Infectious Medical History: Denies: Hx Hepatitis Past Surgical History: Reports: Hx Breast Surgery - Bx, Hx Section - Immunizations Hx Diphtheria, Pertussis, Tetanus Vaccination: No Review of Systems - Review of Systems Notes: REVIEW OF SYSTEMS: CONSTITUTIONAL : Denies fever, chills, or sweats. Denies recent illness. Denies weight loss, recent hospitalizations. EENT: Denies visual changes, eye pain. Denies oral lesions, difficulty swallowing. CARDIOVASCULAR: Denies palpitations. Denies lower extremity edema. RESPIRATORY: + Cough, shortness of breath, wheezing GASTROINTESTINAL: Denies abdominal pain or distention. Denies nausea, vomiting, or diarrhea. Denies blood in vomitus, stools, or per rectum. Denies black, tarry stools. Denies constipation. GENITOURINARY: Denies difficulty urinating, painful urination, frequency, blood in urine, or vaginal discharge. MUSCULOSKELETAL: Denies back or neck pain or stiffness. Denies joint pain or swelling. SKIN: Denies rash, lesions or sores. HEMATOLOGIC : Denies easy bruising or bleeding. LYMPHATIC: Denies swollen glands. NEUROLOGICAL: Denies confusion or altered mental status. Denies loss of consciousness. Denies dizziness or lightheadedness. Denies headache. Denies weakness or paralysis. Denies problems difficulty with ambulation, slurred speech. Denies sensory loss, numbness, or tingling. Denies seizures. PSYCHIATRIC: Denies anxiety or stress. Denies depression, suicidal ideation, or homicidal ideation. Denies visual or auditory hallucinations. Physical Exam - Vital signs Vitals: Temp Pulse Resp BP Pulse Ox 98.4 F 71 16 154/85 H 100 08/06/18 20:35 08/06/18 20:35 08/06/18 20:35 08/06/18 20:35 08/06/18 20:35 - Notes Notes: PHYSICAL EXAMINATION: GENERAL: Well-appearing, well-nourished and in no acute distress. HEAD: Atraumatic, normocephalic. EYES: Pupils equal round and reactive to light, extraocular movements intact, conjunctiva are normal. ENT: Nares patent, oropharynx clear without exudates. Moist mucous membranes. NECK: Normal range of motion, supple without lymphadenopathy LUNGS: Mild expiratory wheezing in the upper lung otero, no accessory muscle use, no tachypnea, no hypoxia, on room air HEART: Regular rate and rhythm without murmurs ABDOMEN: Soft, nontender, nondistended abdomen. No guarding, no rebound. No masses appreciated. Female : deferred Musculoskeletal: Normal range of motion, no pitting or edema. No cyanosis. NEUROLOGICAL: Cranial nerves grossly intact. Normal speech, normal gait. No rmal sensory, motor exams PSYCH: Normal mood, normal affect. SKIN: Warm, Dry, normal turgor, no rashes or lesions noted. Course - Re-evaluation Re-evalutation: Laboratory 08/06/18 08/06/18 08/06/18 20:45 21:56 21:56 WBC 6.2 RBC 4.36 Hgb 13.2 Hct 39.2 MCV 90 MCH 30.3 MCHC 33.7 RDW 13.9 Plt Count 418 Seg Neutrophils % 53.4 Lymphocytes % 36.2 Monocytes % 7.3 Eosinophils % 2.5 Basophils % 0.6 Absolute Neutrophils 3.3 Absolute Lymphocytes 2.2 Absolute Monocytes 0.4 Absolute Eosinophils 0.2 Absolute Basophils 0.0 Sodium 143.3 Potassium 4.0 Chloride 107 Carbon Dioxide 28 Anion Gap 8 BUN 14 Creatinine 0.99 Est GFR ( Amer) > 60 Est GFR (Non-Af Amer) > 60 Glucose 89 Calcium 9.7 Troponin I Influenza A (Rapid) NEGATIVE Influenza B (Rapid) NEGATIVE 08/06/18 21:56 WBC RBC Hgb Hct MCV MCH MCHC RDW Plt Count Seg Neutrophils % Lymphocytes % Monocytes % Eosinophils % Basophils % Absolute Neutrophils Absolute Lymphocytes Absolute Monocytes Absolute Eosinophils Absolute Basophils Sodium Potassium Chloride Carbon Dioxide Anion Gap BUN Creatinine Est GFR ( Amer) Est GFR (Non-Af Amer) Glucose Calcium Troponin I < 0.012 Influenza A (Rapid) Influenza B (Rapid) Chest X-Ray 08/06/18 00:00 IMPRESSION: Negative chest copyright 2011 [email or web address]- All Rights Reserved Temp Pulse Resp BP Pulse Ox 97.9 F 71 16 144/89 H 100 08/06/18 23:01 08/06/18 20:35 08/06/18 23:01 08/06/18 23:01 08/06/18 23:01 43-year-old female with hypertension, asthma presents with complaint of cough, shortness of breath, left ear pain, nasal congestion and sore throat for approximately 1 week. Patient also complaining of 3 days of chest pain that has worsened today. She describes the pain as constant, pressure-like. She denies any radiation of pain, associated nausea, diaphoresis, lightheadedness. CBC, CMP, troponin, EKG unremarkable. Influenza negative. Chest x-ray of without evidence of pneumonia. Presentation is most consistent with a viral upper respiratory infection. Patient is overall well appearance, vitals within normal limits, well-hydrated. Patient denies any headache, neck pain, and has no evidence of meningismus on examination. Lungs have mild wheezing that was resolved after 1 breathing treatment.. No evidence of respiratory distress. Based on clinical exam and history, I do not suspect an acute pneumonia, meningitis, strep pharyngitis, or an acute encephalitis. Will discharge patient with return precautions and followup recommendations. They are in agreement this plan have verbalized understanding return precautions. Patient is PERC negative 08/06/18 23:00 HEART Score: History-0 ECG-0 Age-0 Risk Factors-1 Troponin-0 Total: 1 If HEART score is = 3 AND both troponin measurements are normal, the 30 day risk of a major adverse cardiac event (all-cause mortality, myocardial infarction or need for coronary revascularization) is < 1% (Sensitivity 100%, NPV 100%). Chest pain in a patient without evidence of cardiac or other serious etiology on workup today. I discussed with patient that, based on their age, risk factors and emergency department testing today, the likelihood that their symptoms are related to a heart attack is very low (estimated risk of heart attack or over the next 30 days of less than 1%). The patient demonstrates decision making capacity and has verbalized an understanding of these risks to me. Based on this, the patient has chosen to follow-up as an outpatient. Usual chest pain return precautions reviewed. The patient states understanding and agreement with this plan. 08/07/18 02:12 08/07/18 02:13 - Vital Signs Vital signs: Temp Pulse Resp BP Pulse Ox 97.9 F 71 16 144/89 H 100 08/06/18 23:01 08/06/18 20:35 08/06/18 23:01 08/06/18 23:01 08/06/18 23:01 - Laboratory Result Diagrams: 08/06/18 21:56 08/06/18 21:56 - Diagnostic Test Radiology reviewed: Image reviewed, Reports reviewed Discharge - Discharge Clinical Impression: URI (upper respiratory infection) Qualifiers: URI type: unspecified URI Qualified Code(s): J06.9 - Acute upper respiratory infection, unspecified Asthma exacerbation Qualifiers: Asthma severity: unspecified severity Asthma persistence: intermittent Qualified Code(s): J45.21 - Mild intermittent asthma with (acute) exacerbation Hypertension Qualifiers: Hypertension type: unspecified Qualified Code(s): I10 - Essential (primary) hypertension Condition: Good Disposition: HOME, SELF-CARE Instructions: Upper Respiratory Illness ([facility]), Viral Syndrome ([facility]) Additional Instructions: Your symptoms are most likely due to a viral infection it should resolve over the next 7-14 days. You should take [id number] guanfacine per bottle instructions to help thin the mucus. For nasal congestion: I would recommend that you get [id number] oxymetazoline also known is afrin. Use only per bottle instructions and be sure to never use this for more than 3 days if you can develop severe rebound congestion. You may also use tylenol or ibuprofen as needed for aches and throat discomfort. Please be sure to drink plenty of fluids and get rest. Return to the emergency department he began having difficulty breathing, chest pain, persistent vomiting, or any other symptoms that are concerning to you. You were seen for an asthma exacerbation. Your symptoms improved with treatment here in the emergency department. However, it is very important that you return to the emergency department immediately if you began to have worsening difficulty breathing that does not respond to your normal home nebulizers. You are also being sent home on a five-day course of steroids that you should start taking tomorrow. Please also follow closely with your primary care physician. you should also return to emergency department if you develop fever greater than 101, persistent cough, persistent vomiting, pass out, or any other symptoms that are concerning to you. You were seen today for chest pain. The exact cause of your pain is unclear. However, based on your cardiac enzyme testing, chest x-ray, and EKG it does not appear that it is from an immediately life-threatening cause at this time. Although your testing here is normal is critical that you follow-up with your primary care physician for continued evaluation of this chest pain and possible stress testing. I recommended you see your physician within the next 24-48 hours to be evaluated for consideration of a stress test. Please return to emergency department immediately if you have worsening of your chest pain, shortness of breath, vomiting, become unable to exert yourself due to pain or difficulty breathing, you pass out, or have any pain that radiates into your arms, jaw, or back. Please also return if you have any additional symptoms that are concerning to you. Prescriptions: Guaifenesin/Pseudoephedrne HCl [Mucinex D ER 600-60 mg Tablet] 1 each PO BID 7 Days #14 tab.er.12h Prednisone [Deltasone 20 mg Tablet] 2 tab PO DAILY 5 Days #10 tablet Forms: Elevated Blood Pressure Referrals: ZORAN BLACK PA-C [Primary Care Provider] - Follow up as needed
[2018-08-06 22:07] LABS: ABSOLUTE EOSINOPHILS # (AUTO) 0.2 10^3/uL (0.0-0.6); ABSOLUTE LYMPHOCYTES (AUTO) 2.2 10^3/uL (0.5-4.7); ABSOLUTE MONOCYTES (AUTO) 0.4 10^3/uL (0.1-1.4); ABSOLUTE NEUT (AUTO) 3.3 10^3/uL (1.7-8.2); BASOPHILS % (AUTO) 0.6 % (0-2); EOSINOPHILS % (AUTO) 2.5 % (0-6); HEMATOCRIT 39.2 % (36.0-47.0); HEMOGLOBIN 13.2 g/dL (12.0-15.5); LYMPHOCYTES % (AUTO) 36.2 % (13-45); MEAN CORPUSCULAR HEMOGLOBIN 30.3 pg (27.0-33.4); MEAN CORPUSCULAR HGB CONC 33.7 g/dL (32.0-36.0); MEAN CORPUSCULAR VOLUME 90 fl (80-97); MONOCYTES % (AUTO) 7.3 % (3-13); PLATELET COUNT 418 10^3/uL (150-450); RED BLOOD COUNT 4.36 10^6/uL (3.72-5.28); RED CELL DISTRIBUTION WIDTH 13.9 % (11.5-14.0); SEGMENTED NEUTROPHILS % (AUTO) 53.4 % (42-78); TOTAL CELLS COUNTED % (AUTO) 100 %; WHITE BLOOD COUNT 6.2 10^3/uL (4.0-10.5)
[2018-08-06 22:29] LABS: ANION GAP 8 (5-19); BLOOD UREA NITROGEN 14 mg/dL (7-20); CALCIUM 9.7 mg/dL (8.4-10.2); CARBON DIOXIDE 28 mmol/L (22-30); CHLORIDE 107 mmol/L (98-107); GLUCOSE 89 mg/dL (75-110); SODIUM 143.3 mmol/L (137-145)
[2018-08-06] MEDS ORDERED: IPRATROPIUM/ALBUTEROL 0.5-2.5 MG/3 ML AMPUL NEB ONE (22:38)
[2018-08-06] MEDS ORDERED: ALBUTEROL SULFATE HFA (90 MCG/PUFF) 8 GM MDI (1 MDI/ER DISP) IH PRN (22:54)
[2018-08-06] MEDS ORDERED: PREDNISONE 20 MG TABLET PO ONE (22:55)
[2018-08-06 23:30] VITALS: BP 144/89
--- NOTE | 2018-08-07 09:13 | EKG REPORT ---
SEVERITY:- BORDERLINE ECG - SINUS RHYTHM PROBABLE LEFT ATRIAL ABNORMALITY : Confirmed by: Mike Thompson MD 07-Aug-2018 09:12:25
== END 2018-08-06 23:30 | disposition home or self-care (01) ==
LOC: ER 19:37
DX: J45.21 Mild intermittent asthma with (acute) exacerbation (principal); J06.9 Acute upper respiratory infection, unspecified; R05 Cough; R06.02 Shortness of breath; H92.02 Otalgia, left ear; R09.81 Nasal congestion; J02.9 Acute pharyngitis, unspecified; R07.89 Other chest pain; I10 Essential (primary) hypertension
CPT/HCPCS: 93005; 94640; 99285; 96374; 96375; 36415; 85025; 80048; 84484; 87804; 71046; 93010; J2270; J7512; J2405; J3490; J7620

== ENCOUNTER → 2019-03-26 | Outpatient (CLI) | payer OTHER ==
[2019-03-26 11:53] LABS: ABSOLUTE EOSINOPHILS # (AUTO) 0.1 10^3/uL (0.0-0.6); ABSOLUTE LYMPHOCYTES (AUTO) 1.6 10^3/uL (0.5-4.7); ABSOLUTE MONOCYTES (AUTO) 0.4 10^3/uL (0.1-1.4); ABSOLUTE NEUT (AUTO) 2.4 10^3/uL (1.7-8.2); BASOPHILS % (AUTO) 0.5 % (0-2); EOSINOPHILS % (AUTO) 1.6 % (0-6); HEMATOCRIT 37.9 % (36.0-47.0); LYMPHOCYTES % (AUTO) 35.7 % (13-45); MEAN CORPUSCULAR HEMOGLOBIN 30.4 pg (27.0-33.4); MEAN CORPUSCULAR HGB CONC 34.2 g/dL (32.0-36.0); MEAN CORPUSCULAR VOLUME 89 fl (80-97); MONOCYTES % (AUTO) 8.7 % (3-13); PLATELET COUNT 333 10^3/uL (150-450); RED BLOOD COUNT 4.27 10^6/uL (3.72-5.28); RED CELL DISTRIBUTION WIDTH 13.4 % (11.5-14.0); SEGMENTED NEUTROPHILS % (AUTO) 53.5 % (42-78); TOTAL CELLS COUNTED % (AUTO) 100 %; WHITE BLOOD COUNT 4.4 10^3/uL (4.0-10.5)
[2019-03-26 12:15] LABS: ALBUMIN 4.3 g/dL (3.5-5.0); ALKALINE PHOSPHATASE 89 U/L (38-126); ANION GAP 8 (5-19); ASPARTATE AMINO TRANSFERASE 20 U/L (14-36); BILIRUBIN,DIRECT 0.3 mg/dL (0.0-0.4); BILIRUBIN,TOTAL 0.4 mg/dL (0.2-1.3); BLOOD UREA NITROGEN 13 mg/dL (7-20); CALCIUM 9.8 mg/dL (8.4-10.2); CARBON DIOXIDE 28 mmol/L (22-30); CHLORIDE 106 mmol/L (98-107); CHOLESTEROL 171.81 mg/dL (0-200); GLUCOSE 82 mg/dL (75-110); POTASSIUM 4.5 mmol/L (3.6-5.0); TOTAL PROTEIN 7.8 g/dL (6.3-8.2); TRIGLYCERIDES 104 mg/dL (<150)
[2019-03-26 12:32] LABS: DIRECT LDL 120 mg/dL (<100)
== END ==
LOC: CCC 10:12
DX: I10 Essential (primary) hypertension (principal); J45.909 Unspecified asthma, uncomplicated
CPT/HCPCS: 36415; 80053; 80061; 83036; 85025

== ENCOUNTER 2019-04-01 12:30 | Emergency (ER) | payer OTHER ==
[2019-04-01 12:46] VITALS: BP 140/86
--- NOTE | 2019-04-01 12:57 | ER Document Report ---
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 IN LAST 30 DAYS: No - HPI Notes: 43 year old female to the ED with C/O progressively worsening vaginal pain for the past several days. She states that she has had a problem with a "cyst" on her right labia for several years. States that she was going to have it removed, but it wasn't bothering her so she did not have it addressed. States that in the past week, the area has grown in size and has begun to be very painful. Made worse with walking and movement. Denies any drainage. Denies fevers, chills, headache, chest pain, vaginal bleeding. - Related Data Allergies/Adverse Reactions: diphenhydramine [From Benadryl] Adverse Reaction (Mild, Verified 04/01/19 12:31) Hallucinations Past Medical History - General Information source: Patient - Social History Smoking Status: Never Smoker Frequency of alcohol use: None Drug Abuse: None Family History: Reviewed & Not Pertinent - Past Medical History Cardiac Medical History: Reports: Hx Hypertension Denies: Hx Atrial Fibrillation, Hx Congestive Heart Failure, Hx Coronary Artery Disease, Hx DVT, Hx Heart Attack, Hx Hypercholesterolemia, Hx Pulmonary Embolism Pulmonary Medical History: Reports: Hx Asthma Denies: Hx COPD, Hx Sleep Apnea Neurological Medical History: Denies: Hx Seizures Endocrine Medical History: Denies: Hx Diabetes Mellitus Type 1, Hx Diabetes Mellitus Type 2, Hx Hyperthyroidism, Hx Hypothyroidism Renal/ Medical History: Denies: Hx Peritoneal Dialysis GI Medical History: Denies: Hx Cirrhosis, Hx Gastroesophageal Reflux Disease, Hx Hepatitis Musculoskeletal Medical History: Denies Hx Arthritis Skin Medical History: Reports Hx Eczema Psychiatric Medical History: Reports: Hx Depression - Mild; denies suicidal or homicidal ideation Infectious Medical History: Denies: Hx Hepatitis Past Surgical History: Reports: Hx Breast Surgery - Bx, Hx Section - Immunizations Hx Diphtheria, Pertussis, Tetanus Vaccination: No Review of Systems - Review of Systems Constitutional: denies: Chills, Fever EENT: No symptoms reported Cardiovascular: denies: Chest pain, Palpitations, Syncope, Dizziness, Lightheaded Respiratory: denies: Cough, Short of breath Gastrointestinal: denies: Abdominal pain, Diarrhea, Nausea, Vomiting Female Genitourinary: See HPI, Other Musculoskeletal: No symptoms reported Skin: See HPI, Other -: Yes All other systems reviewed and negative Physical Exam - Vital signs Vitals: Temp Pulse Resp BP Pulse Ox 98.2 F 82 16 140/86 H 97 04/01/19 12:44 04/01/19 12:44 04/01/19 12:44 04/01/19 12:44 04/01/19 12:44 Interpretation: Normal - General General appearance: Appears well, Alert - HEENT Head: Normocephalic, Atraumatic Eyes: Normal Pupils: PERRL - Respiratory Respiratory status: No respiratory distress Chest status: Nontender Breath sounds: Normal Chest palpation: Normal - Cardiovascular Rhythm: Regular Heart sounds: Normal auscultation Murmur: No - Abdominal Inspection: Normal Distension: No distension Bowel sounds: Normal Tenderness: Nontender Organomegaly: No organomegaly - Genitourinary External exam: Other - to the right labia there is a fluctuant and tender labial abscess. It is not actively draining. There is no streaking erythema or lymphangitis. - Neurological Neuro grossly intact: Yes Cognition: Normal Orientation: AAOx4 [place]wn Coma Scale Eye Opening: Spontaneous [place]wn Coma Scale Verbal: Oriented [place]wn Coma Scale Motor: Obeys Commands [place] Coma Scale Total: 15 Speech: Normal Motor strength normal: LUE, RUE, LLE, RLE Sensory: Normal - Psychological Associated symptoms: Normal affect, Normal mood - Skin Skin Temperature: Warm Skin Moisture: Dry Skin Color: Normal Skin irregularity: Abscess - see for further discussion about labial abscess Course - Re-evaluation Re-evalutation: Impression: Right labial abscess. Offered Incision and Drainage to patient but she declined. Did explain that definitive treatment for this abscess would be drainage. Patient still declined. 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 Will discharge home and ABx. Encouraged warm compresses and Sitz baths. Patient agrees with the plan. - Vital Signs Vital signs: Temp Pulse Resp BP Pulse Ox 98.2 F 82 16 140/86 H 97 04/01/19 12:44 04/01/19 12:44 04/01/19 12:44 04/01/19 12:44 04/01/19 12:44 Discharge - Discharge Clinical Impression: Abscess of right genital labia Condition: Stable Disposition: HOME, SELF-CARE Instructions: Abscess ([facility]) Additional Instructions: Complete all antibiotics as prescribed. Definitive treatment of this labial a bscess is incision and drainage. You have chosen not to have a incision and drainage today. You may return at any time to have a drainage done. Push fluids. Take pain medicines as prescribed. Apply warm compresses or get in warm tub 3 times a day for 20 minutes. Follow-up with [facility]. Return here immediately if you have worsening swelling, worsening pain, inability urinate, fevers, redness streaking into the groin or up onto the stomach. 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
== END 2019-04-01 13:40 | disposition home or self-care (01) ==
LOC: ER 12:30
DX: N76.4 Abscess of vulva (principal); R10.2 Pelvic and perineal pain; I10 Essential (primary) hypertension
CPT/HCPCS: 99282

== ENCOUNTER 2019-06-08 17:54 | Emergency (ER) | payer OTHER ==
[2019-06-08] MEDS ORDERED: METOCLOPRAMIDE HCL 10 MG TABLET PO ONE (18:29)
[2019-06-08] MEDS ORDERED: IBUPROFEN 800 MG TABLET PO ONE (18:29)
--- NOTE | 2019-06-08 18:29 | ER Document Report ---
ED Medical Screen (RME) - General Chief Complaint: Headache Stated Complaint: HANDS TINGLING Time Seen by Provider: 06/08/19 18:24 Primary Care Provider: [facility] [Primary Care Provider] - Follow up as needed Mode of Arrival: Ambulatory Information source: Patient Notes: This 44-year-old female with history of migraines, high blood pressure and TIA presents today with complaints of headache for the past week. Reports some nausea. Now complains of chest pain that started today. Reports she is taken Tylenol without relief of symptoms. Patient is speaking in a clear voice no obvious neuro deficits noted reports some photophobia. I have greeted and performed a rapid initial assessment of this patient. A comprehensive ED assessment and evaluation of the patient, analysis of test results and completion of the medical decision making process will be conducted by additional ED providers. Dictation of this chart was performed using voice recognition software; therefore, there may be some unintended grammatical errors. TRAVEL OUTSIDE OF THE [place] IN LAST 30 DAYS: No - Related Data Allergies/Adverse Reactions: diphenhydramine [From Benadryl] Adverse Reaction (Mild, Verified 06/08/19 18:23) Hallucinations Past Medical History - Social History Chew tobacco use (# tins/day): No Drug Abuse: None Family history: Reviewed & Not Pertinent - Past Medical History Cardiac Medical History: Reports: Hx Hypertension Denies: Hx Atrial Fibrillation, Hx Congestive Heart Failure, Hx Coronary Artery Disease, Hx DVT, Hx Heart Attack, Hx Hypercholesterolemia, Hx Pulmonary Embolism Pulmonary Medical History: Reports: Hx Asthma Denies: Hx COPD, Hx Sleep Apnea Neurological Medical History: Denies: Hx Seizures Endocrine Medical History: Denies: Hx Diabetes Mellitus Type 1, Hx Diabetes Mellitus Type 2, Hx Hyperthyroidism, Hx Hypothyroidism Renal/ Medical History: Denies: Hx Peritoneal Dialysis GI Medical History: Denies: Hx Cirrhosis, Hx Gastroesophageal Reflux Disease, Hx Hepatitis Musculoskeltal Medical History: Denies Hx Arthritis Skin Medical History: Reports Hx Eczema Psychiatric Medical History: Reports: Hx Depression - Mild; denies suicidal or homicidal ideation Infectious Medical History: Denies: Hx Hepatitis Past Surgical History: Reports: Hx Breast Surgery - Bx, Hx Section - Immunizations Hx Diphtheria, Pertussis, Tetanus Vaccination: No Physical Exam - Vital signs Vitals: Temp Pulse Resp BP Pulse Ox 98.4 F 66 20 128/80 H 100 06/08/19 18:15 11/13/19 18:15 06/08/19 18:15 06/08/19 18:15 06/08/19 18:15 Course - Vital Signs Vital signs: Temp Pulse Resp BP Pulse Ox 98.4 F 66 20 128/80 H 100 06/08/19 18:15 06/08/19 18:15 06/08/19 18:15 06/08/19 18:15 06/08/19 18:15 Doctor's Discharge - Discharge Referrals: [facility] [Primary Care Provider] - Follow up as needed
[2019-06-08 19:11] LABS: ABSOLUTE EOSINOPHILS # (AUTO) 0.1 10^3/uL (0.0-0.6); ABSOLUTE LYMPHOCYTES (AUTO) 2.4 10^3/uL (0.5-4.7); ABSOLUTE MONOCYTES (AUTO) 0.4 10^3/uL (0.1-1.4); ABSOLUTE NEUT (AUTO) 2.7 10^3/uL (1.7-8.2); BASOPHILS % (AUTO) 0.7 % (0-2); EOSINOPHILS % (AUTO) 1.3 % (0-6); HEMOGLOBIN 13.1 g/dL (12.0-15.5); LYMPHOCYTES % (AUTO) 42.3 % (13-45); MEAN CORPUSCULAR HEMOGLOBIN 31.1 pg (27.0-33.4); MEAN CORPUSCULAR HGB CONC 34.4 g/dL (32.0-36.0); MEAN CORPUSCULAR VOLUME 90 fl (80-97); PLATELET COUNT 383 10^3/uL (150-450); RED BLOOD COUNT 4.21 10^6/uL (3.72-5.28); RED CELL DISTRIBUTION WIDTH 13.8 % (11.5-14.0); SEGMENTED NEUTROPHILS % (AUTO) 47.7 % (42-78); TOTAL CELLS COUNTED % (AUTO) 100 %; WHITE BLOOD COUNT 5.6 10^3/uL (4.0-10.5)
[2019-06-08 19:15] LABS: APPEARANCE,URINE SLIGHTLY-CLOUDY; BILIRUBIN,URINE NEGATIVE (NEGATIVE); COLOR,URINE YELLOW; GLUCOSE, URINE NEGATIVE (NEGATIVE); KETONES,URINE NEGATIVE (NEGATIVE); LEUKOCYTE ESTERASE,URINE SMALL (NEGATIVE); NITRITE,URINE NEGATIVE (NEGATIVE); PROTEIN,URINE 30 mg/dL (NEGATIVE); URINE SPECIFIC GRAVITY 1.031
[2019-06-08 19:30] LABS: ALBUMIN 4.4 g/dL (3.5-5.0); ALKALINE PHOSPHATASE 87 U/L (38-126); ANION GAP 10 (5-19); ASPARTATE AMINO TRANSFERASE 19 U/L (14-36); BILIRUBIN,DIRECT 0.1 mg/dL (0.0-0.4); BILIRUBIN,TOTAL 0.4 mg/dL (0.2-1.3); BLOOD UREA NITROGEN 14 mg/dL (7-20); CALCIUM 9.8 mg/dL (8.4-10.2); CARBON DIOXIDE 27 mmol/L (22-30); CHLORIDE 106 mmol/L (98-107); GLUCOSE 82 mg/dL (75-110); TOTAL PROTEIN 8.2 g/dL (6.3-8.2)
--- NOTE | 2019-06-08 19:31 | RADIOLOGY REPORT (SQ) ---
EXAM DESCRIPTION: CHEST 2 VIEWS COMPLETED DATE/TIME: 06/08/2019 7:14 pm REASON FOR STUDY: cp COMPARISON: 08/06/2018 EXAM PARAMETERS: NUMBER OF VIEWS: two views TECHNIQUE: Digital Frontal and Lateral radiographic views of the chest acquired. RADIATION DOSE: NA LIMITATIONS: none FINDINGS: LUNGS AND PLEURA: No opacities, masses or pneumothorax. No pleural effusion. MEDIASTINUM AND HILAR STRUCTURES: No masses or contour abnormalities. HEART AND VASCULAR STRUCTURES: Heart normal size. No evidence for failure. BONES: No acute findings. HARDWARE: None in the chest. OTHER: No other significant finding. IMPRESSION: NO ACUTE RADIOGRAPHIC FINDING IN THE CHEST. TECHNICAL DOCUMENTATION: JOB ID: [id number] [employer]- All Rights Reserved Reading location - IP/workstation name: [email or web address]
--- NOTE | 2019-06-08 20:00 | ER Document Report ---
ED General - General Chief Complaint: Headache Stated Complaint: HANDS TINGLING Time Seen by Provider: 06/08/19 18:24 Primary Care Provider: [facility] [Primary Care Provider] - Follow up as needed Mode of Arrival: Ambulatory TRAVEL OUTSIDE OF THE [place] IN LAST 30 DAYS: No - HPI Patient complains to provider of: headache Notes: 44 y/o presenting to ED for evaluation of headache she reports 1-2 weeks of bilateral throbbing headache, blurred vision, tingling in fingers and chest pain she states all of these symptoms are consistent w/ previous headaches she used to follow with a neurologist in [place] for what she referred to as "complex migraines." she denies weakness or speech difficulty no neck stiffness no fever no visual change no gait change - Related Data Allergies/Adverse Reactions: diphenhydramine [From Benadryl] Adverse Reaction (Mild, Verified 06/08/19 18:23) Hallucinations Past Medical History - General Information source: Patient - Social History Smoking Status: Never Smoker Chew tobacco use (# tins/day): No Drug Abuse: None Family History: Reviewed & Not Pertinent Patient has suicidal ideation: No Patient has homicidal ideation: No - Past Medical History Cardiac Medical History: Reports: Hx Hypertension Denies: Hx Atrial Fibrillation, Hx Congestive Heart Failure, Hx Coronary Artery Disease, Hx DVT, Hx Heart Attack, Hx Hypercholesterolemia, Hx Pulmonary Embolism Pulmonary Medical History: Reports: Hx Asthma Denies: Hx COPD, Hx Sleep Apnea Neurological Medical History: Denies: Hx Seizures Endocrine Medical History: Denies: Hx Diabetes Mellitus Type 1, Hx Diabetes Mellitus Type 2, Hx Hyperthyroidism, Hx Hypothyroidism Renal/ Medical History: Denies: Hx Peritoneal Dialysis GI Medical History: Denies: Hx Cirrhosis, Hx Gastroesophageal Reflux Disease, Hx Hepatitis Musculoskeletal Medical History: Denies Hx Arthritis Skin Medical History: Reports Hx Eczema Psychiatric Medical History: Reports: Hx Depression - Mild; denies suicidal or homicidal ideation Infectious Medical History: Denies: Hx Hepatitis Past Surgical History: Reports: Hx Breast Surgery - Bx, Hx Section - Immunizations Hx Diphtheria, Pertussis, Tetanus Vaccination: No Review of Systems - Review of Systems Constitutional: No symptoms reported EENT: No symptoms reported Cardiovascular: Chest pain Respiratory: No symptoms reported Gastrointestinal: No symptoms reported Genitourinary: No symptoms reported Female Genitourinary: No symptoms reported Musculoskeletal: No symptoms reported Skin: No symptoms reported Hematologic/Lymphatic: No symptoms reported Neurological/Psychological: Headaches, Tingling Physical Exam - Vital signs Vitals: Temp Pulse Resp BP Pulse Ox 98.4 F 66 20 128/80 H 100 06/08/19 18:15 06/08/19 18:15 06/08/19 18:15 06/08/19 18:15 06/08/19 18:15 Interpretation: Normal - General General appearance: Appears well, Alert - HEENT Head: Normocephalic, Atraumatic Eyes: Normal Pupils: PERRL Mucous membranes: Normal Neck: Normal. No: Meningismus - Respiratory Respiratory status: No respiratory distress Chest status: Nontender Breath sounds: Normal Chest palpation: Normal - Cardiovascular Rhythm: Regular Heart sounds: Normal auscultation Murmur: No - Abdominal Inspection: Normal Distension: No distension Bowel sounds: Normal Tenderness: Nontender Organomegaly: No organomegaly - Back Back: Normal, Nontender - Extremities General upper extremity: Normal inspection, Nontender, Normal color, Normal ROM, Normal temperature General lower extremity: Normal inspection, Nontender, Normal color, Normal ROM, Normal temperature, Normal weight bearing. No: [place]'s sign - Neurological Neuro grossly intact: Yes Cognition: Normal Orientation: AAOx4 [place] Coma Scale Eye Opening: Spontaneous [place] Coma Scale Verbal: Oriented [place] Coma Scale Motor: Obeys Commands [place] Coma Scale Total: 15 Speech: Normal Motor strength normal: LUE, RUE, LLE, RLE Sensory: Normal - Psychological Associated symptoms: Normal affect, Normal mood - Skin Skin Temperature: Warm Skin Moisture: Dry Skin Color: Normal Course - Re-evaluation Re-evalutation: 06/08/19 20:19 patient w/ normal neuro exam GCS 15 vitals normal chest pain atypical for cardiac presenation - trop neg x1 and ekg normal and cxr normal improved w/ po reglan and ibuprofen given earlier in shift will add toradol and give rx for imitrex and fioirect at home as she says this has helped previously no meningismus on exam recommend neurology follow up as outpt - Vital Signs Vital signs: Temp Pulse Resp BP Pulse Ox 98.4 F 66 20 128/80 H 100 06/08/19 18:15 06/08/19 18:15 06/08/19 18:15 06/08/19 18:15 11/13/19 18:15 - Laboratory Result Diagrams: 06/08/19 18:42 06/08/19 18:42 Laboratory results interpreted by me: 06/08/19 18:42 Urine Protein 30 H Urine Urobilinogen 4.0 H Ur Leukocyte Esterase SMALL H - Diagnostic Test Radiology reviewed: Image reviewed, Reports reviewed - EKG Interpretation by Me Additional EKG results interpreted by me: 06/08/19 20:20 NSR, rate of 67, no ST segment changes Discharge - Discharge Clinical Impression: Precordial chest pain Headache Qualifiers: Headache type: unspecified Headache chronicity pattern: acute headache Intractability: not intractable Qualified Code(s): R51 - Headache Condition: Stable Disposition: HOME, SELF-CARE Instructions: Headache ([facility]), Toradol Injection ([facility]), Reglan ([facility]) Additional Instructions: consider following up with a local neurologist as an outpatient return to the ED with worsening take medicine as directed Prescriptions: Butalb/Acetaminophen/Caffeine [Fioricet (50-325-40 mg) Tablet] 1 - 2 tab PO Q4H #20 tab Sumatriptan Succinate [Imitrex 50 mg Tablet] 50 mg PO PRN PRN #10 tab PRN Reason: Referrals: [facility] [Primary [facility] Provider] - Follow up as needed
[2019-06-08] MEDS ORDERED: KETOROLAC TROMETHAMINE INJ/PF 30 MG/1 ML SDV IV ONE (20:17)
[2019-06-08 20:37] VITALS: BP 117/68
--- NOTE | 2019-06-08 23:30 | EKG REPORT ---
SEVERITY:- BORDERLINE ECG - SINUS RHYTHM PROBABLE LEFT ATRIAL ABNORMALITY : Confirmed by: Sabina Hahn MD 08-Jun-2019 23:29:27
== END 2019-06-08 20:37 | disposition home or self-care (01) ==
LOC: ER 17:54
DX: R07.2 Precordial pain (principal); R51 Headache; R20.0 Anesthesia of skin; H53.8 Other visual disturbances; I10 Essential (primary) hypertension; J45.909 Unspecified asthma, uncomplicated
CPT/HCPCS: 93005; 36415; 85025; 81025; 80053; 81001; 84484; 71046; 93010; J1885